=== PATIENT | female | born 2000 | race African-American/Black ===

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

== ENCOUNTER 2019-11-24 11:00 | Outpatient (CLI) | payer OTHER ==
[2019-11-25 12:12] LABS: SARS-CoV-2 MS2 Positive; SARS-CoV-2 N Gene Negative; SARS-CoV-2 S Gene Negative; SARS-CoV-2 orf1ab Negative
== END 2019-11-24 11:01 | disposition home or self-care (01) ==
LOC: LABBT 11:00
PROVIDERS: ATTEND Obstetrics & Gynecology
DX: Z01.812 Encounter for preprocedural laboratory examination (principal); Z11.59 Encounter for screening for other viral diseases
CPT/HCPCS: 87635; U0003

== ENCOUNTER 2019-11-27 10:39 | Observation (INO) | payer OTHER ==
[2019-11-27 11:24] VITALS: BMI 28.3
[2019-11-27] MEDS ORDERED: Iron Sucrose Complex 500 MG in Sodium Chloride 0.9% 250 ML 250 ML IVPB SCH (12:30)
[2019-11-27] MEDS ORDERED: Acetaminophen 500 MG TAB PO SCH (12:30)
--- NOTE | 2019-11-27 14:42 | PDOC.FPROB ---
FMR OB H&P: HPI - History of Present Illness Chief Complaint: CTX Indentification: History of Present Illness: Patient is a 19 y/o female at 33W EGA by LMP, c/w 1T US, who presents to L&D for an Iron Transfusion. Incidentally during her intake, the patient noted that she had been having severe ABD pain for ~5D, and noted that the pain was diffuse and would often cause her to halt her conversation or interrupt her activities at work or home. Following placement of monitors , the patient was found to be chato Q2-3M, with noticeable discomfort with each contraction. Patient continued to endorse good movement, and denied any loss of fluid, vaginal bleeding, unusual vaginal discharge, fevers, chills, cough, sore throat, recent trauma, recent travel or known sick contacts. 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 - Family History Family History: Strong FHx of HTN, DM2, CAD FMR OB H&P: Medications - Current Home Medications: Medication Instructions Recorded Confirmed Type Albuterol Sulfate [Proair HFA] 1 puff INH Q4HR PRN 03/08/15 02/13/18 History Iron 18 mg PO DAILY 10/14/17 02/13/18 History Pnv No.95/Ferrous Fum/Folic AC 1 each PO DAILY 10/14/17 02/13/18 History [ Formula] Allergies/Adverse Reactions: Allergies Allergy/AdvReac Type Severity Reaction Status Date / Time No Known Allergies Allergy Verified 08/21/19 13:27 FMR OB H&P: ROS - Review of Systems General: reports: weight/appetite/sleep changes, fatigue. denies: fever/chills , recent trauma Eyes: denies: vision changes, scotomas, floaters ENT: denies: rhinorrhea, frequent nose bleed Cardiovascular: reports: edema. denies: chest pain Respiratory: reports: shortness of breath, exercise intolerance. denies: cough , congestion Gastrointestinal: denies: abdominal pain, nausea, vomiting, diarrhea, constipation Genitourinary (Female): reports: vaginal discharge, contractions. denies: dysuria, hematuria, vaginal pain, vaginal bleeding, vaginal pressure Musculoskeletal: reports: swelling Neurologic: denies: syncope, loss of counsciousness Integumentary: denies: rash, lesions Psychological: reports: anxiety FMR OB H&P: Vital Signs - Maternal Vital signs: HR(92) BP(117/67) O2Sat(99%-Room Air) - Heart Tones Baseline: 140 Variability: moderate Acceleration: present Deceleration: absent Category: category 1 FMR OB H&P: Physical Exam - Physical Exam General: NAD, awake, alert and oriented HEENT: normocephalic and atraumatic, PERRLA, EOMI, MMM, conjunctiva clear, no scleral icterus, grossly normal vision, grossly normal hearing, normal nasal mucosa, oropharynx clear Neck: supple, FROM Chest: non-tender to palpation Breast: symmetric Heart: RRR, normal S1/S2, no murmurs/rubs/gallops, pulses present, no edema General: CTAB, no respiratory distress, good air movement, no rales/rhonchi, no wheezing, no retractions Abdomen: soft, gravid, non-tender Musculoskeletal: pulses present, FROM in all four extremities, no misalignment/ asymmetry, no atrophy Neurological: no focal deficit Skin: no rash, no jaundice Psychiatric: intact recent and remote memory, normal mood and affect - Pelvic Exam SVE: 1.5//-2 Membranes: Intact FMR OB H&P: A/P - Problem List (1) Anxiety Current Visit: Yes Status: Chronic Code(s): F41.9 - ANXIETY DISORDER, UNSPECIFIED (2) Asthma Current Visit: Yes Status: Chronic Code(s): J45.909 - UNSPECIFIED ASTHMA, UNCOMPLICATED (3) contractions Current Visit: Yes Status: Acute Code(s): O47.9 - FALSE LABOR, UNSPECIFIED (4) Anemia Current Visit: No Status: Acute Code(s): D64.9 - ANEMIA, UNSPECIFIED Disposition: Patient is a 19 y/o at 33W EGA by LMP, c/w 1T US, who presented to L&D for an Iron Transfusion but was incidentally found to have Pre-Term CTX. 1. Pre-Term CTX -CTX were initially Q2-3M on admission -No noted loss of fluids or loss of movement -s/p 1.5L NS and Iron Transfusion -Maternal VSS -FHTs in the 140s, CTX Q5-7M during last evaluation -Will encourage increased PO intake and provide with meals PRN -Will plan to repeat SVE @ 1630 and evaluate frequency of CTX -Plan for additional bolus if CTX > 1-2 per 10M interval 2. SIUP -See #1 3. Anemia -s/p Iron Transfusion -Will encourage appropriate outpatient follow-up to repeat CBC 4. Asthma -Patient denies respiratory symptoms at this time - has not had to use her inhaler recently 5. Anxiety -Not currently on medications due to insurance provider -Patient does not currently endorse uncontrolled anxiety, depression, SI or HI PCP: VALDEZ Cervantes Code: Full Diet: Regular Activity: Ad jena VTE PPx: None IVF: NS @ 100 ml/hr Dispo: Will repeat SVE @ 1630 and assess for cervical change - will continue to provide IVF and encourage PO intake as per above. Expected LOS < 24H. Discussion: Date/Time: 11/27/19 1432 This H&P was discussed with [] and [] who agree with the above documentation and plan. Addendum - Attending - Attending Attestation Date/Time: 11/27/19 1720 I personally evaluated the patient and discussed the management with Dr. Mcwilliams I agree with the History, Examination, Assessment and Plan documented above with any addition or exceptions noted below. Clarification to HPI. Patient has experienced uterine contractions since Friday, not continuous or intermittent abdominal pain. On my exam the uterus is soft and nontender between contractions. While her contractions improved for a while with hydration and iron infusion, she ultimately experienced an allergic reaction to the infusion. Benadryl given with improvement of arm swelling and leg swelling and rash. Contractions have increased. They are painful. Cervical effacement change noted on repeat exam. Will admit for labor at 33 weeks EGA. Check out given to Dr Elizondo.
[2019-11-27] MEDS ORDERED: hydrALAZINE 20 MG/ML VIAL SLOW IVP PRN (15:10)
[2019-11-27] MEDS ORDERED: diphenhydrAMINE 50 MG/ML VIAL ONE (15:49)
[2019-11-27] MEDS ORDERED: Ondansetron PF 4 MG/2 ML Vial IVP PRN (16:42)
[2019-11-27] MEDS ORDERED: Promethazine HCl 25 MG/ML VIAL IM PRN (16:42)
[2019-11-27] MEDS ORDERED: Butorphanol Tartrate 1 MG/ML VIAL SLOW IVP PRN (16:56)
[2019-11-27] MEDS ORDERED: Penicillin G Potassium 5 MILL.UNITS in Sodium Chloride 0.9% 100 ML IVPB SCH (17:00)
[2019-11-27] MEDS ORDERED: NIFEdipine 10 MG CAP PO SCH (17:00)
[2019-11-27] MEDS: Betamet Acet/Betamet Na Ph 30 MG/5 ML VIAL IM SCH (17:45)
[2019-11-27 18:28] LABS: Hemoglobin 10.1 g/dL (12.0-16.0); Mean Corpuscular HGB CONC 32.6 g/dL (32.0-36.0); Mean Corpuscular Volume 82.9 fL (78.0-98.0); Mean Platelet Volume 8.1 fL (7.4-10.4); Platelet Count 286 thou/uL (130-400); RBC Distribution Width 13.5 % (11.5-14.5); Red Blood Cell (RBC) Count 3.74 mill/uL (4.00-5.20); White Blood Cell (WBC) Count 10.7 thou/uL (4.8-10.8)
[2019-11-27 18:50] LABS: ALT (SGPT) Less than 7 U/L (8-55); AST (SGOT) 9 U/L (5-34); Albumin 2.9 g/dL (3.5-5.0); Alkaline Phosphatase 70 U/L (40-100); Anion Gap 12 mmol/L (10-20); BUN (Urea Nitrogen) 6 mg/dL (7.0-18.7); Bilirubin, Total 0.5 mg/dL (0.2-1.2); Calc. Creatinine Clearance 171 mL/min (70-130); Calcium 7.8 mg/dL (7.8-10.44); Carbon Dioxide 22 mmol/L (22-29); Chloride 110 mmol/L (98-107); Estimated GFR-MDRD Greater than 90; Globulin 2.6 g/dL (2.4-3.5); Glucose 86 mg/dL (70-105); Potassium 3.6 mmol/L (3.5-5.1); Protein, Total 5.5 g/dL (6.0-8.3); Sodium 140 mmol/L (136-145)
[2019-11-27 19:10] LABS: Syphilis Antibody Nonreactive (Nonreactive); Syphilis Antibody Index 0.06 S/CO (<1.00 Non-Reactive)
[2019-11-27 19:11] LABS: HBSAg Index 0.14 S/CO (0-0.99); HIV (1/2) Antibody/Antigen Non-Reactive (NonReactive); HIV 1/2 INDEX 0.16 S/CO (<1.00); Hep B Surf Ag Non-Reactive S/CO (NonReactive)
[2019-11-27 19:57] LABS: Bacteria/HPF None Seen HPF (None Seen); Bilirubin Negative (Negative); Blood, Urine Negative (Negative); Clarity Clear (Clear); Glucose, Urine (Dipstick) Normal (Negative); Leukocyte Negative Leu/uL (Negative); Nitrite Negative (Negative); Protein, Urine (Dipstick) Negative (Neg-Trace); RBC/HPF 0-3 HPF (0-3); Squamous Epithelial 0-3 HPF (0-3); Urobilinogen Normal mg/dL (Less than 2); WBC/HPF 0-3 HPF (0-3)
--- NOTE | 2019-11-27 20:05 | PDOC.LDPN ---
Labor & Delivery Progress Note - Subjective Subjective: comfortable - Objective Vital signs reviewed and normal: yes General: NAD Uterine fundus: non tender SVE: not repeated FHT: category 1 Dozier contractions every: Irregular Other exam findings: membrane intact - Assessment (1) contractions Code(s): O47.9 - FALSE LABOR, UNSPECIFIED Current Visit: Yes Status: Acute (2) Anemia Code(s): D64.9 - ANEMIA, UNSPECIFIED Current Visit: No Status: Acute Qualifiers: Anemia type: iron deficiency Iron deficiency anemia type: inadequate dietary iron intake Qualified Code(s): D50.8 - Other iron deficiency anemias -: Pt is experiencing now once in the last hour. She does have some swelling after the administration of iron sucrose. Cx are on the monitor. FHT's are WNL. She has received Benadryl 25 mg x 1 and if symptoms persist she can receive another dose. GBS pending. Received betamethasone, nifedipine. Continue current treatment so pt can receive second dose of betamethasone. Will work up pt for infection as source of labor - GCCH, VP3. Pending BPP, Biometry , and cervical length. Recheck in 6 hours from 2129. Abel Dowling DO Addendum - Attending - Attending Attestation Date/Time: 11/27/192033 I personally evaluated the patient and discussed the management with Dr. Dowling I agree with the History, Examination, Assessment and Plan documented above with any addition or exceptions noted below. 19 yo female at 33.0 wks presented for iron infusion now with concern for PTL. Patient denies contractions. Dozier reviewed. Cxt noted irregularly. FHT cat 1. VS reviewed. - contractions: Thought to be in PTL. BMZ for FLM started. CCB started for PTL. S/P SVE. Unable to obtain fFN. Will obtain CL, biometry, and BPP. No evidence of abruption. No significant findings of infections. Vaginal swabs and urine sent. GBS swab pending but currently receiving PCN. Continue to monitor throughout the night. Concerned initially related to dehydration that resolved with IVFs. Now feel ctx related to recent inflammatory /allergic reaction. - iron def anemia: Unable to treat with oral iron. Received majority of iron infusion prior to reaction. Trend count in outpatient setting. - iron succrose reaction: Continue to monitor. Has received benadryl and now receiving BMZ for FLM. Kelsey
[2019-11-27] MEDS: NIFEdipine 10 MG CAP PO SCH (20:46)
[2019-11-27] MEDS: Lactated Ringer's 1,000 ML IV SCH (20:46)
[2019-11-27] MEDS: Pen G 2.5 MILL.UNITS/50 ML BAG IVPB SCH (20:46)
--- NOTE | 2019-11-27 21:42 | ULT ---
Complete obstetrical ultrasound INDICATION: Contractions at 33 weeks gestation; biometry and cervical length TECHNIQUE: Grayscale, M-mode Doppler and Doppler images were obtained of the abdomen and pelvis to ev aluate the patient's known . COMPARISON: None. FINDINGS: Number of gestations: Single. Presentation: Cephalic. Placental location: Posterior Previa: No evidence for previa. Cervical length: 3.4 cm ELI: 20.5 cm. heart rate: 165 bpm. Biparietal diameter: 8.37cm, 33 weeks and 5 days, 65th percentile. Head circumference: 30.89 cm, 34 weeks and 3 days, 52nd percentile Abdominal circumference: 29.42 cm, 33 weeks and 3 days, 63rd percentile Femoral length: 6.11cm, 31 weeks and 5 days, 11th percentile Estimated weight: 2110 g g +/- 312g 4 lbs. 10 oz. +/- 11 ounces, 42nd percentile. SURVEY: head: Not well seen. Cerebellum: Not well seen. Cisterna magna: Not well seen Lateral ventricles: Not well seen 4 chamber heart: Normal appearing.. Stomach: Normal appearing. Kidneys: Normal appearing. Cord insertion: Normal appearing. Bladder: Normal appearing. Spine: Normal appearing. Lips and nose: Not well seen Extremities: Not well seen Three-vessel CORD: Normal appearing. The average gestational age by ultrasound is 33 weeks and 2 dayswith estimated due date of January 13, 2020. The estimated dates by clinical data is 33 weeks and 0 dayswith estimated due date of January 15, 2020 . IMPRESSION: 1. Single live intrauterine gestation with size and dates as above. 2. Limitations to the survey due to advanced gestational age.
--- NOTE | 2019-11-27 21:43 | ULT ---
LIMITED OBSTETRICAL ULTRASOUND FOR BIOPHYSICAL PROFILE INDICATION: Contractions at 33 weeks gestation TECHNIQUE: Grayscale, M-mode Doppler, color Doppler and spectral Doppler images were obtained. Biophy sical profile was submitted by the surgery technician. Imaging is focused on the clinical indication. COMPARISON: No relevant prior studies available. GESTATION: Number of gestations: Single. Presentation: Cephalic. heart rate: 165 bpm. Placental location: Posterior Previa: No evidence for previa. Cervical length: 3.4 cm ELI: 20.5 cm. Biophysical profile: tone: 2 out of 2. breathin out of 2 movements: 2 out of 2 Amniotic fluid level: 2 out of 2 IMPRESSION: 1. Biophysical profile of 8 out of 8.
[2019-11-28] MEDS: NIFEdipine 10 MG CAP PO SCH ×4 (00:39→13:27)
[2019-11-28] MEDS: Pen G 2.5 MILL.UNITS/50 ML BAG IVPB SCH ×4 (00:39→13:28)
--- NOTE | 2019-11-28 05:43 | PDOC.LDPN ---
Labor & Delivery Progress Note - Subjective Subjective: comfortable - Objective General: NAD, resting -: Subjective: at 33 wks who presented with contractions. She slept through the night w/o discomfort. This morning she felt one episode of pressure/ abdominal tightness. On the monitor it did appear she had a contraction. She denies LOF, vaginal bleeding, discharge. We did start antifungal yesterday for likely fungal infection although VP3 negative. Objective: FHT's low moderate variability. ELI 20.4 cm. Cervical Length 3.4 cm. A/P: Continue to watch pt until the next dose of betamethasone. If she does not appear to have overt signs of labor can discharge to home after second betamethasone dose. She will need a cervical check before discharge. Abel Dowling, DO
[2019-11-28] MEDS: Lactated Ringer's 1,000 ML IV SCH ×2 (06:30→16:14)
[2019-11-28 07:14] VITALS: BP 114/62
--- NOTE | 2019-11-28 09:47 | PDOC.LDPN ---
Labor & Delivery Progress Note -: 19 yo at 33.1 wks who presented with contractions. She slept through the night w/o discomfort. No recent contractions She denies LOF, vaginal bleeding, discharge. We did start antifungal yesterday for likely fungal infection although VP3 negative. US: ELI 20.4 cm. Cervical Length 3.4 cm. It does not appear patient is in labor. A/P: Continue to watch pt until the next dose of betamethasone @ 1745. If she does not appear to have overt signs of labor can discharge to home after second betamethasone dose. She will need a cervical check before discharge. Rx sent to complete course of clotrimazole. Addendum - Attending - Attending Attestation Date/Time: 11/28/19 9605 I personally evaluated the patient and discussed the management with Dr. Guzman. I agree with the History, Examination, Assessment and Plan documented above with any addition or exceptions noted below. Of note she had a panic attack after our rounds when she heard her son was possibly exposed to Covid. Our team comforted her and prayed with her. Contractions noted thereafter. Will continue to monitor.
[2019-11-28 15:26] VITALS: TEMP 98.2
[2019-11-28] MEDS: Betamet Acet/Betamet Na Ph 30 MG/5 ML VIAL IM SCH (18:12)
[2019-11-28] MEDS ORDERED: Clotrimazole 2% 3 Day Vag Cr 22.2 GM TUBE VAG SCH (21:00)
[2019-11-29 21:26] LABS: Chlamydia by PCR Not Detected (NotDetected); GC by PCR Not Detected (NotDetected)
== END 2019-11-28 18:20 | disposition home health service (06) ==
LOC: L&D/OP 10:39 → L&D 17:40 → INTOOBSV 17:40
PROVIDERS: ADMIT Family Medicine; ATTEND Family Medicine
DX: O47.03 False labor before 37 completed weeks of gestation, third trimester (principal); O99.013 Anemia complicating pregnancy, third trimester; D50.8 Other iron deficiency anemias; O99.513 Diseases of the respiratory system complicating pregnancy, third trimester; J45.909 Unspecified asthma, uncomplicated; O99.343 Other mental disorders complicating pregnancy, third trimester; F41.1 Generalized anxiety disorder; O9A.213 Injury, poisoning and certain other consequences of external causes complicating pregnancy, third trimester; M79.89 Other specified soft tissue disorders; T45.4X5A Adverse effect of iron and its compounds, initial encounter; Z3A.33 33 weeks gestation of pregnancy; Z79.899 Other long term (current) drug therapy
CPT/HCPCS: 36415; 76805; 76819; 80053; 81001; 85027; 86780; 86850; 86900; 86901; 87081; 87340; 87389; 87480; 87491; 87510; 87591; 87660; 96361; 96374; 96375; 96376; 99285; G0378; J0595; J0702; J1200; J1756; J2540; J3490; J7050

== ENCOUNTER 2019-11-29 16:34 | Observation (INO) | payer OTHER ==
[2019-11-29 17:19] VITALS: BMI 28.3
[2019-11-29] MEDS ORDERED: hydrALAZINE 20 MG/ML VIAL SLOW IVP PRN (18:51)
[2019-11-29] MEDS ORDERED: Lactated Ringer's 1,000 ML IV SCH ×2 (19:00→21:15)
[2019-11-29 19:25] LABS: Amnisure Test No Membranes Rupture (No Rupture)
[2019-11-29 19:26] LABS: Amnisure Internal Control QC ACCEPTABLE (ACCEPTABLE)
--- NOTE | 2019-11-29 19:44 | PDOC.FPROB ---
FMR OB H&P: HPI - History of Present Illness Chief Complaint: contractions History of Present Illness: Pt is a 19 yo at 33-2/7 wga by LMP confirmed by a 10-1/7 week u/s who presents with chief complaint of contractions. She states they increased in intensity around noon today and are about 3-5 minutes apart. Patient came to the hospital on 11/27/2019 for an iron transfusion and was suspected to be in pre term labor. Her cervical length was 34 mm with irregular contractions. Patient received Procardia and 2 doses of betamethasone before being sent home. She denies any complications this , but her first was complicated by pre-eclampsia with severe features and post hemorrhage. Patient endorses good movement, although she thinks it is less than before. Positive leaking of fluids earlier today, but no gush of fluid, and she denies vaginal bleeding. She denies any headache, chest pain, edema, RUQ pain, changes in vision. She does endorse mild intermittent SOB that started around 27 weeks. 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: menarche at 10 regular periods, every month currently sexually active with men LMP 04/10/2019 Hx of STDs: Chlamydia in August 2018 with negative test in May 2019 - Surgical History Sx History: benign breast tumor excision in 2014 - Family History Family History: father, bone d/o maternal aunt, DM and breast ca maternal grandmother, HTN, DM mother, HTN, hx of Pre Eclampsia, DM FMR OB H&P: Medications - Current Home Medications: Medication Instructions Recorded Confirmed Type Albuterol Sulfate [Proair HFA] 1 puff INH Q4HR PRN 03/08/15 11/29/19 History Iron 18 mg PO DAILY 10/14/17 11/29/19 History Pnv No.95/Ferrous Fum/Folic AC 1 each PO DAILY 10/14/17 11/29/19 History [ Formula Tablet] Clotrimazole 2% 3 Day Vag Cr 5 gm VAG HS 2 Days #1 tube 11/28/19 11/29/19 Rx [Clotrimazole 2% 3 Day Vaginal Cream] Allergies/Adverse Reactions: Allergies Allergy/AdvReac Type Severity Reaction Status Date / Time No Known Allergies Allergy Verified 11/29/19 17:17 FMR OB H&P: ROS - Review of Systems General: denies: fever/chills, weight/appetite/sleep changes, fatigue, recent trauma, other Cardiovascular: denies: chest pain, palpitation, edema Respiratory: reports: shortness of breath (mild intermittent SOB since 27 weeks , but denies increase in severity). denies: cough, exercise intolerance, other Gastrointestinal: denies: abdominal pain, indigestion, cramping, nausea, vomiting Genitourinary (Female): reports: vaginal discharge (clear, odorless discharge), contractions (contractions increased in intensity around noon. Every 3-4 minutes ). denies: dysuria, vaginal bleeding Musculoskeletal: denies: swelling Neurologic: denies: headache Integumentary: denies: itching, rash, lesions Psychological: denies: depression, anxiety FMR OB H&P: Vital Signs - Maternal Vital signs: WNL - Heart Tones Baseline: 140 Variability: moderate Acceleration: absent Deceleration: absent Category: category 1 Frederica contractions every: 3-4 minutes FMR OB H&P: Physical Exam - Physical Exam General: NAD, awake, alert and oriented HEENT: normocephalic and atraumatic, PERRLA, EOMI, conjunctiva clear, no scleral icterus Neck: supple, trachea midline Chest: non-tender to palpation Heart: RRR, normal S1/S2, no murmurs/rubs/gallops, pulses present, no edema General: CTAB, no respiratory distress, good air movement, no rales/rhonchi, no wheezing Abdomen: soft, gravid, non-tender Musculoskeletal: pulses present Neurological: cranial nerves II through XII intact, no focal deficit Skin: no rash Lymphatic: no unusual bruising or bleeding Psychiatric: intact recent and remote memory, good judgement and insight, normal mood and affect - Pelvic Exam Cervix: no masses, no lesions, no blood Membranes: intact FMR OB H&P: Results - Labs Lab results: Laboratory Results - last 24 hr 11/29/19 19:06 Amnio Swab Test No Membranes Rupture FMR OB H&P: A/P - Problem List (1) Current Visit: Yes Status: Acute Qualifiers: Weeks of gestation: 33 weeks Qualified Code(s): Z3A.33 - 33 weeks gestation of Assessment and Plan: - at 33 2/7 wga by LMP confirmed by first trimester ultrasound -history of pre-eclampsia in previous -adequate care, follows with Dr. Billy CHRISTIANSON -iron transfusion on 11/26 and presumed to be in PTL. Given procardia and 2x betamethasone from 11/26-11/27 -continue to monitor for signs of labor (2) contractions Current Visit: No Status: Acute Code(s): O47.9 - FALSE LABOR, UNSPECIFIED Assessment and Plan: -Pt is 33 2/7wga, ctx every 3-4 minutes -1L bolus of LR given, contractions have decreased. Will continue with MIVF, 125mL/hr LR -Amnisure negative for rupture of membranes -transvaginal ultrasound for evaluation of cervical length, 2.7cm today compared to 3.4cm on 11/28/2019 -Procardia 10mg TID -continue to monitor for signs of pre term labor (3) Anxiety Current Visit: No Status: Chronic Code(s): F41.9 - ANXIETY DISORDER, UNSPECIFIED Assessment and Plan: -patient not currently on any medications -denies any symptoms -continue to monitor (4) Asthma Current Visit: No Status: Chronic Code(s): J45.909 - UNSPECIFIED ASTHMA, UNCOMPLICATED Assessment and Plan: -patient endorses mild intermittent SOB since 27wga -no acute respiratory symptoms or wheezing -uses ProAir PRN at home -continue to monitor Discussion: Date/Time: 11/29/191937 This H&P was discussed with Dr. Morrison and Dr. Steele who agree with the above documentation and plan. Addendum - Attending - Attending Attestation Date/Time: 11/29/19 896 I personally evaluated the patient and discussed the management with Dr. Polanco I agree with the History, Examination, Assessment and Plan documented above with any addition or exceptions noted below. patient has received 2 doses of steroids during hospitalization from 11/26 to for concern for PTL. She was discharged home yesterday after her contractions stopped. transabdominal US showed cervical length of 3.4cm. FFN was not collected at that time. Patient states she has drank 8oz of water since discharge and noticed her contractions returned. FHT reassuring but she was initially contraction every 3-5 minutes. Speculum exam was unremarkable for pooling and amnisure is negative. Repeat cervical length US show her cervix was now 2.7 cm. She self administered vaginal clotrimazole within the past 48 hrs so unable to check FFN today. Will admit for labor given change in cervical US. she has received a 1L LR bolus which slowed her contractions. Will start procardia for tocolysis. Monitor on L&D and continue IV fluids. Will notify neonatology if her contractions resume. Will reassess SVE in the morning.
[2019-11-29 20:23] LABS: Bacteria/HPF 1+ HPF (None Seen); Bilirubin Negative (Negative); Blood, Urine Negative (Negative); Clarity Clear (Clear); Glucose, Urine (Dipstick) Normal (Negative); Ketone, Urine Negative (Negative); Leukocyte Negative Leu/uL (Negative); Mucous/LPF 1+ LPF (<2+); Nitrite Negative (Negative); Protein, Urine (Dipstick) Negative (Neg-Trace); RBC/HPF 0-3 HPF (0-3); Specific Gravity, Urine 1.016 (1.002-1.036); Squamous Epithelial 0-3 HPF (0-3); Urobilinogen Normal mg/dL (Less than 2); WBC/HPF 0-3 HPF (0-3); pH, Urine 6.5 (5.0-9.0)
[2019-11-29 20:25] LABS: Urine Culture Reflex Yes Yes
--- NOTE | 2019-11-29 20:33 | ULT ---
PELVIC ULTRASOUND: History: Evaluate cervical length Comparison: 11-26-2016 FINDINGS: Presentation: Cephalic Cervical length: 2.7 to 2.95 cm. Trace amount of fluid is suspected. heart tones: 135 beats/minute Posterior placenta. IMPRESSION: Cervical length between 2.7 and 2.95 cm. A small amount of fluid in the cervix is noted. POS: PPP
[2019-11-29] MEDS ORDERED: Promethazine HCl 25 MG/ML VIAL IM PRN (21:11)
[2019-11-29] MEDS ORDERED: Acetaminophen 500 MG TAB PO PRN (21:11)
[2019-11-29] MEDS ORDERED: Ondansetron PF 4 MG/2 ML Vial IVP PRN (21:11)
[2019-11-29] MEDS ORDERED: Docusate 100 MG CAP PO PRN (21:11)
[2019-11-29] MEDS ORDERED: NIFEdipine 10 MG CAP PO SCH (22:00)
[2019-11-30] MEDS ORDERED: Acetaminophen 500 MG TAB PO SCH (00:30)
[2019-11-30] MEDS ORDERED: hydrOXYzine 10 MG TAB PO SCH (01:00)
--- NOTE | 2019-11-30 07:14 | PDOC.OBAPN ---
R OB AP PN: Sub - Interval History Hospital Day: 1 Chief Complaint: Contractions Indentification: @ 33.3wk by LMP/9.3wk sono Interval History: No concerns, no CP, SOB, n/v, vision changes. Ctx spaced out, slept well FMR OB AP PN: Obj - Maternal Vital signs: T 99.4, 100% on RA, HR 97/103, BP 100s/50s with max 125/61 - Heart Tones Baseline: 130 Variability: moderate Acceleration: present Deceleration: absent Category: category 1 [place] contractions every: intermittent since 399 FMR OB AP PN: Exam - Physical Exam General: NAD, awake, alert and oriented HEENT: MMM, grossly normal vision, grossly normal hearing Neck: supple, trachea midline Heart: RRR, normal S1/S2, no murmurs/rubs/gallops, pulses present, other (mild, non-pitting LE edema to ankles) General: CTAB, no respiratory distress, good air movement, no rales/rhonchi, no wheezing Abdomen: soft, gravid, non-tender, bowel sound present, no masses Neurological: no focal deficit Psychiatric: intact recent and remote memory, good judgement and insight, normal mood and affect FMR OB AP PN: Data - Labs Lab results: Laboratory Results - last 24 hr 11/29/19 11/29/19 19:06 20:10 Urine Color Light-Yellow Urine Clarity Clear Urine pH 6.5 Ur Specific [place] 1.016 Urine Protein Negative Urine Glucose (UA) Normal Urine Ketones Negative Urine Blood Negative Urine Nitrite Negative Urine Bilirubin Negative Urine Urobilinogen Normal Ur Leukocyte Esterase Negative Urine RBC 0-3 Urine WBC 0-3 Ur Squamous Epith Cells 0-3 Urine Bacteria 1+ A Urine Mucus 1+ Urine Culture Reflexed Yes A Amnio Swab Test No Membranes Rupture FMR OB AP PN: A/P - Problem List (1) Current Visit: Yes Status: Acute Qualifiers: Weeks of gestation: 33 weeks Qualified Code(s): Z3A.33 - 33 weeks gestation of (2) contractions Current Visit: Yes Status: Acute Code(s): O47.9 - FALSE LABOR, UNSPECIFIED Disposition: 19yo @ 33.3wk by LMP/9.3wk sono presents for contractions # contractions, concern for labor - Seen 6/27 in L&D for iron transfusion, was chato every 3-5min with concern for labor - Cervical length at that time 3.4, given Procardia x1 and betamethasone x2 doses with spacing out on ctx and discharged with good return precautions - presented 11/28 PM with recurrence of contractions. SVE was 1-2/50/-2 at presentation. - Cervical length 2.7 -> 2.95cm on US, Amnisure negative, no pooling on exam. Reviewed images, Cervical T shaped, very scant fluid in cervix. Variation in cervical length could be due to transabdominal vs transvaginal different between the two exams - Started on Procardia 10mg TID for tocolysis and given IVF bolus and started on MIVF - Initial ctx q3-4min, spaced out since 0400 to intermittent. - Cat 1 strip with accels, no deccels. Baseline 130. Endorses good movement, no LOF or vaginal bleeding this AM - Will recheck cervix this AM to asses for any cervical change. Cont to monitor on FHT. Encourage hydration. - Unable to perform FFN due to recent clotrimazole intravaginal use #h/o PrE and hemorrhage - previous , on ASA - BPs WNL, no s/s of severe features - will monitor #Mild intermittent asthma - proair prn IVF: LR @ 125cc/hr Diet: Regular PCP: VALDEZ Cervantes Dispo: Cont to monitor FHT and contractions. Recheck cervix this AM to determine if in labor and appropriate management. Will obtain GBS due to concern for possible labor. Discussion: Date/Time: 11/30/19 5654 This H&P was discussed with and Dr. Adams who agree with the above documentation and plan. Addendum - Attending - Attending Attestation Date/Time: 11/30/19 5403 I personally evaluated the patient and discussed the management with Dr. Wesley. I agree with the History, Examination, Assessment and Plan documented above with any addition or exceptions noted below. No change on digital exam. Upon review of images no funneling and discrepancy between TAS and TVUS may account for shortening. Regardless, she is no longer chato. D/c without procardia. Return precautions discussed in detail.
[2019-11-30] MEDS ORDERED: NIFEdipine 10 MG CAP PO SCH (09:00)
[2019-11-30 09:05] VITALS: BP 116/59; TEMP 97.6
--- NOTE | 2019-12-02 15:09 | DIS ---
DATE OF ADMISSION: 11/29/2019 DATE OF DISCHARGE: 11/30/2019 RESIDENT: Sergio Wesley MD ADMITTING ATTENDING PHYSICIAN: Mike Steele MD DISCHARGE ATTENDING: Dr. Fuentes Adams. CONSULTS: None. PROCEDURES: Transvaginal ultrasound on 11/29/19, demonstrating cephalic presentation with a cervical length of 2.7 to 2.95 cm with trace amount of fluid. heart tones are 135 beats per minute and a posterior placenta. PRIMARY DIAGNOSIS: contractions, concern for labor. SECONDARY DIAGNOSIS: 1. History of preeclampsia in previous . 2. History of hemorrhage requiring transfusion with previous delivery. 3. Mild intermittent asthma. 4. Anxiety. DISCHARGE MEDICATIONS: 1. ProAir one puff inhalation q.4 hours p.r.n. 2. Iron 18 mg p.o. daily. 3. vitamin 1 tablet p.o. daily. 4. Clotrimazole 2% 3 Day vaginal cream, to use one additional day to complete course. DISCONTINUED MEDICATIONS: None. HISTORY OF PRESENT ILLNESS AND HOSPITAL COURSE: The patient is a 19-year-old G2, P1-0-0-1 at 33.3 weeks by LMP consistent with a 9.3 week sono who presented for contractions. Of note, the patient presented on November 26 for a scheduled iron infusion, at that time was having contractions every 3 to 4 minutes and was thus worked up for labor. She was observed overnight and received 2 doses of betamethasone. GBS swab was obtained which returned negative. She was given IV hydration and one dose of Procardia with cessation of contractions and thus was discharged home with strict return precautions. A cervical ultrasound was also performed at that time, which showed a cervical length of 3.4 cm. However, this was done transabdominally. Since discharge, the patient states that she has not been drinking very much water at all but had continued to use her clotrimazole cream for a suspected yeast infection. She presented to Labor and Delivery triage for return of contractions spacing every 3 to 4 minutes and increased in intensity that did not subside over a few hours of observation. She endorsed good movement. No vaginal bleeding and no change in vaginal discharge. At initial presentation, a speculum exam was performed that did not show any pooling or loss of fluid or Valsalva. AmniSure was obtained that was negative. A repeat cervical ultrasound transvaginally was obtained with a cervical length of 2.7 to 2.9 cm. The patient was given IV fluid bolus and maintenance IV fluid and encouraged with p.o. hydration and was started on Procardia 10 mg t.i.d. Early in the morning hours on the first day of hospitalization, her contractions spaced out and she was no longer feeling numb the morning of discharge. At initial presentation over the weekend, her cervix was 1 to 2 cm, 50% effaced, and negative 2 station. A cervical exam was performed on the morning of discharge that was essentially unchanged at 1, 50, -2. Unfortunately, a fibronectin was unable to be obtained due to patient using clotrimazole for a yeast infection. Variance in the cervical length could be due to transabdominal versus transvaginal approach. The patient was monitored on monitoring over the morning and had a category 1 strip with very intermittent contractions, accelerations without decelerations. She endorsed good movement, no loss of fluid, and no return of contractions. Due to the patient already receiving adequate steroids and having a GBS swab obtained, it was determined the patient would be safe for discharge home with strict return precautions. Signs and symptoms of delivery were discussed with the patient as well as appropriate followup within the next week for her routine 34 week visit as well as hospital followup. Of note, patient will also need a repeat GBS swab should she progress to greater than 38 weeks prior to delivery due to the GBS swab obtained at 33 weeks. The patient was strongly encouraged to maintain adequate oral hydration. Ultrasound images were reviewed, which showed a T shaped cervix that appeared closed with very scant fluid. Due to all of the findings above, the patient was then discharged home with very strict return labor precautions. The patient and mother at bedside voiced agreement and understanding of discharge plan with all questions answered. The patient was then discharged home. DISPOSITION: Stable. DISCHARGE INSTRUCTIONS: 1. Location: Home. 2. Diet: As tolerated. 3. Activity: As tolerated. 4. Followup: The patient should follow up within 1 week for her routine 34 week visit as well as hospital followup or sooner if needed. Job ID: [id number]
== END 2019-11-30 11:15 | disposition home health service (06) ==
LOC: L&D/OP 16:34 → L&D 22:05 → INTOOBSV 22:05 → L&D 11-30 20:23
PROVIDERS: ADMIT Family Medicine; ATTEND Family Medicine
DX: O47.03 False labor before 37 completed weeks of gestation, third trimester (principal); O99.513 Diseases of the respiratory system complicating pregnancy, third trimester; J45.20 Mild intermittent asthma, uncomplicated; O99.343 Other mental disorders complicating pregnancy, third trimester; F41.9 Anxiety disorder, unspecified; Z3A.33 33 weeks gestation of pregnancy; Z79.899 Other long term (current) drug therapy
CPT/HCPCS: 76856; 84112; 87086; 99285

== ENCOUNTER 2019-12-18 16:54 | Day surgery (SDC) | payer OTHER ==
[2019-12-18 17:22] VITALS: BMI 29.3
[2019-12-18 17:35] VITALS: BP 121/71; TEMP 98
--- NOTE | 2019-12-18 19:09 | PDOC.FPROB ---
FMR OB H&P: HPI - History of Present Illness Chief Complaint: contractions Indentification: 19yo @ 36wks by LMP/9.3wk History of Present Illness: 19yo @ 36wks by LMP/9.3wk presents for ctx. Patient was at work today and has had intermittent ctx for past few weeks. At approx 1130, had onset of painful ctx, every 3-5min. Drank plenty of water but ctx did not subside. Presented to L&D and ctx initially subsided but have now returned to eery 4-6 min. No LOF, vaginal discharge or bleeding. Endorses good movement. No CP , has chronic SOB during most of third trimester with no changes, occasional MENENDEZ that improves with tylenol. No vision changes, RUQ or epigastric pain, dysuria, or n/v. Of note, she was admitted on 11/26-11/27 for concern for labor, at that time was given steroids x2, tocolytic, IV hydration, and a CL was 2.7cm. She was discharged home with labor precautions. She had a GBS swab performed earlier in but is due for repeat now that she is 36wks GA. Primary Care Physician: VALDEZ Cervantes FMR OB H&P: Current - Care : 2 Para: 1001 Gestational age: 36 Due date: 01/15/20 Dating Criteria: LMP/9.3wk sono Course/Complications: Anemia of - OB Labs Blood type: O RH: positive Antibody Screen: negative HIV: negative RPR: negative HepBsAg: negative Urine drug screen: negative Gonorrhea: negative Chlamydia: negative 1 hour gtt: 108 A1c: 5.3 GBS: negative H&H: 8.7/27.4 on 12/10/19 Platelets: 234 FMR OB H&P: History - Past Medical History PMH: anxiety, mild intermittent asthma, migraine - OB History OB History: h/o PreE in prior , current on ASA history of hemorrhage - 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 H/o Chlamydia in August 2018 with negative this - Surgical History Sx History: Benign breast tumor excision in 2014 - Social History Social History: No Tob, illicits, EtOH. - Family History Family History: father with bone disorder maternal aunt DM and breast ca maternal grandmother with HTN and DM mother with HTN, DM, h/o PreE FMR OB H&P: Medications - Current Home Medications: Medication Instructions Recorded Confirmed Type Albuterol Sulfate [Proair HFA] 1 puff INH Q4HR PRN 03/08/15 12/18/19 History Iron 18 mg PO DAILY 10/14/17 12/18/19 History Pnv No.95/Ferrous Fum/Folic AC 1 each PO DAILY 10/14/17 12/18/19 History [ Formula Tablet] Allergies/Adverse Reactions: Allergies Allergy/AdvReac Type Severity Reaction Status Date / Time No Known Allergies Allergy Verified 11/29/19 17:17 FMR OB H&P: ROS - Review of Systems General: denies: fever/chills, weight/appetite/sleep changes Eyes: denies: vision changes, double vision, scotomas, floaters ENT: denies: nasal congestion, rhinorrhea, sore throat Cardiovascular: denies: chest pain, palpitation, edema Respiratory: reports: shortness of breath (chronic, no changes). denies: cough , congestion Gastrointestinal: denies: abdominal pain, cramping, nausea, vomiting, diarrhea, constipation Genitourinary (Female): reports: contractions. denies: dysuria, hematuria, polyuria, vaginal discharge, vaginal bleeding Musculoskeletal: denies: pain, stiffness Neurologic: denies: numbness, syncope, weakness Integumentary: denies: rash Psychological: reports: anxiety. denies: depression FMR OB H&P: Vital Signs - Maternal Vital signs: Vital Signs - First Documented Temp Pulse Resp BP 98.0 F 94 18 121/71 12/18/19 17:21 12/18/19 17:21 12/18/19 17:21 12/18/19 17:21 - Heart Tones Baseline: 140 Variability: moderate Acceleration: present Deceleration: absent Category: category 1 [place] contractions every: 4-6min FMR OB H&P: Physical Exam - Physical Exam General: NAD, awake, alert and oriented HEENT: PERRLA, EOMI, MMM Neck: supple, trachea midline Heart: RRR, normal S1/S2, no murmurs/rubs/gallops, no edema General: CTAB, no respiratory distress, good air movement, no rales/rhonchi, no wheezing Abdomen: soft, gravid, non-tender, bowel sound present Musculoskeletal: normal gait and station, FROM in all four extremities Neurological: no focal deficit Skin: no rash Psychiatric: intact recent and remote memory, good judgement and insight, normal mood and affect - Pelvic Exam SVE: 1.5/50/-2 Membranes: intact FMR OB H&P: A/P - Problem List (1) Current Visit: Yes Status: Acute Qualifiers: Weeks of gestation: 36 weeks Qualified Code(s): Z3A.36 - 36 weeks gestation of (2) contractions Current Visit: Yes Status: Acute Code(s): O47.9 - FALSE LABOR, UNSPECIFIED Disposition: 19yo @ 36wks by LMP/9.3wk presents for ctx. # contractions, r/o labor - presents for ctx for past 5-6 hours, q2-3min initially and now q4-6 on monitor - FHT cat 1 - No LOF, vaginal bleeding or discharge, good FM - s/p Steroids for lung protection on 11/26-11/27 during overnight obs for concern for labor - SVE 1.550/-2, unchanged from hospitalization on 11/26 - will obtain GBS swab today - encourage PO hydration, monitor ctx, and recheck in approx 2 hours #Anemia of - s/p iron transfusion 11/26 - Hb 8.7 on 12/10/19, down from 10 post transfusion - will need monitoring during labor and #h/o PrE and hemorrhage - previous , on ASA - BPs WNL, no s/s of severe features #Mild intermittent asthma - uses proair prn - avoid hemabate IVF: SL Diet: Regular PCP: VALDEZ Cervantes Dispo: During observation on L&D, patient with continued contractions q4-6min, Cat 1 strip. Planned for IVF bolus, however patient refused and stated would continue PO hydration. SVE recheck after 3 hours was essentially unchanged at 50/-2. No evidence of labor at this time. Encouraged PO hydration. Strict labor precautions given. Discharge plan discussed with patient and mother at bedside who voiced understanding and agreement, all questions answered. Discussion: Date/Time: 12/18/191908 This H&P was discussed with Dr. Steele who agrees with the above documentation and plan. Addendum - Attending - Attending Attestation Date/Time: 12/18/192023 I personally evaluated the patient and discussed the management with Dr. Wesley. I agree with the History, Examination, Assessment and Plan documented above with any addition or exceptions noted below.
[2019-12-18] MEDS ORDERED: hydrALAZINE 20 MG/ML VIAL SLOW IVP PRN (19:14)
[2019-12-18] MEDS ORDERED: Lactated Ringer's 1,000 ML IV SCH (20:15)
[2019-12-18] MEDS ORDERED: diphenhydrAMINE 50 MG/ML VIAL IVP SCH (20:15)
== END 2019-12-18 21:55 | disposition home or self-care (01) ==
LOC: L&D/OP 16:54
PROVIDERS: ATTEND Family Medicine
DX: O47.03 False labor before 37 completed weeks of gestation, third trimester (principal); O99.513 Diseases of the respiratory system complicating pregnancy, third trimester; J45.20 Mild intermittent asthma, uncomplicated; Z3A.36 36 weeks gestation of pregnancy; Z79.899 Other long term (current) drug therapy
CPT/HCPCS: 87081

== ENCOUNTER 2019-12-31 18:27 | Day surgery (SDC) | payer BC, OTHER ==
[2019-12-31 19:13] VITALS: BP 125/78; TEMP 98.6; BMI 30.2
--- NOTE | 2019-12-31 20:02 | PDOC.FPRHP ---
- History of Present Illness Chief Complaint: HTN History of Present Illness: Patient is a 19yo @ 37.6 wks presenting for HTN. She reports that she has been monitoring her BP for the past 24 hrs more closely and has been getting pressures of 130s/70s at the highest. She also reports that she has had increased BLT LE swelling over the past day. The swelling is up to her knees and feels tight. She is feeling contractions 4-5 times an hour and has good FM. She endorses vaginal discharge that has been going on for multiple weeks. The discharge is clear and slightly malodorous. She has no concern for yeast or bacterial infection, it is different than her typical presentation for either of those. She denies a big gush of fluids. Denies VB. - Allergies/Adverse Reactions Allergies Allergy/AdvReac Type Severity Reaction Status Date / Time iron [From Venofer] Allergy Hives Verified 12/31/19 19:03 - Home Medications Medication Instructions Recorded Confirmed Type Albuterol Sulfate [Proair HFA] 1 puff INH Q4HR PRN 03/08/15 12/31/19 History Iron 18 mg PO DAILY 10/14/17 12/31/19 History Pnv No.95/Ferrous Fum/Folic AC 1 each PO DAILY 10/14/17 12/31/19 History [ Formula Tablet] Aspirin [Adult Low Dose Aspirin EC] 81 mg PO DAILY 12/31/19 12/31/19 History - History PMHx: PSHx: FHx: Social: - Vital signs BP: [] HR: [] RR: [] Tmax: [] Pox: []% on [] Wt: [] FMR H&P: Upper Level - Plan Date/Time: 12/31/191958 I, [], have evaluated this patient and agree with findings/plan as outlined by bakery pastry internship resident. Pertinent changes/additions are listed here.
[2019-12-31 20:20] LABS: #Eosinphils 0.1 thou/uL (0.0-0.7); #Lymphocytes 1.4 thou/uL (1.20-3.40); #Monocytes 0.5 thou/uL (0.11-0.59); #Neutrophils 4.8 thou/uL (1.40-6.50); %Basophils 0.5 % (0.0-1.0); %Eosinophils 0.8 % (0.0-10.0); %Monocytes 6.7 % (0.0-4.0); %Neutrophils 71.1 % (31.0-61.0); Hemoglobin 9.6 g/dL (12.0-16.0); Mean Corpuscular HGB CONC 32.2 g/dL (32.0-36.0); Mean Corpuscular Hemoglobin 27.3 pg (25.0-35.0); Mean Corpuscular Volume 84.9 fL (78.0-98.0); Mean Platelet Volume 8.5 fL (7.4-10.4); Platelet Count 209 thou/uL (130-400); RBC Distribution Width 17.9 % (11.5-14.5); Red Blood Cell (RBC) Count 3.51 mill/uL (4.00-5.20); White Blood Cell (WBC) Count 6.8 thou/uL (4.8-10.8)
--- NOTE | 2019-12-31 20:20 | PDOC.FPROB ---
FMR OB H&P: HPI - History of Present Illness Chief Complaint: HTN, leg swelling History of Present Illness: Patient is a 19yo @ 37.6 wks presenting for HTN. She reports that she has been monitoring her BP for the past 24 hrs more closely and has been getting pressures of 130s/70s at the highest. She also reports that she has had increased BLT LE swelling over the past day. The swelling is up to her knees and feels tight. She is feeling contractions 4-5 times an hour and has good FM. She endorses vaginal discharge that has been going on for multiple weeks. The discharge is clear and slightly malodorous. She has no concern for yeast or bacterial infection, it is different than her typical presentation for either of those. She denies a big gush of fluids. Denies VB. Primary Care Physician: VALDEZ Caraballo FMR OB H&P: Current - Care : 2 Para: 1 Gestational age: 37.6 wks Due date: 01/10/20 Dating Criteria: 10.1 wk US Total weight gain: 20 lbs Course/Complications: Anemia, anxiety - OB Labs Blood type: O RH: positive Antibody Screen: negative HIV: negative RPR: negative HepBsAg: negative Rubella: immune Gonorrhea: negative Chlamydia: negative (05/23/19) 1 hour gtt: 108 A1c: 5.3 FMR OB H&P: History - Past Medical History PMH: asthma, anxiety - OB History OB History: 1 after mIOL for preE - Surgical History Sx History: none - Social History Social History: Lives at home with FOB - Family History Family History: No family hx of complications or defects FMR OB H&P: Medications - Current Home Medications: Medication Instructions Recorded Confirmed Type Albuterol Sulfate [Proair HFA] 1 puff INH Q4HR PRN 03/08/15 12/31/19 History Iron 18 mg PO DAILY 10/14/17 12/31/19 History Pnv No.95/Ferrous Fum/Folic AC 1 each PO DAILY 10/14/17 12/31/19 History [ Formula Tablet] Aspirin [Adult Low Dose Aspirin EC] 81 mg PO DAILY 12/31/19 12/31/19 History Allergies/Adverse Reactions: Allergies Allergy/AdvReac Type Severity Reaction Status Date / Time iron [From Venofer] Allergy Hives Verified 12/31/19 19:03 FMR OB H&P: ROS - Review of Systems General: denies: fever/chills, recent trauma Eyes: reports: vision changes, floaters. denies: eye pain ENT: denies: nasal congestion, rhinorrhea Cardiovascular: reports: edema. denies: chest pain, palpitation Respiratory: denies: cough, congestion, shortness of breath Gastrointestinal: denies: abdominal pain, nausea, vomiting Genitourinary (Female): reports: vaginal discharge, contractions. denies: incontinence, dysuria, vaginal bleeding Musculoskeletal: denies: pain, stiffness Neurologic: reports: headache. denies: numbness, syncope, seizures Integumentary: denies: itching, rash Breast: denies: lumps, bumps Hematologic/Lymphatic: denies: prolonged or excessive bleeding, enlarged lymph nodes Psychological: reports: anxiety. denies: depression FMR OB H&P: Vital Signs - Maternal Vital signs: Vital Signs - First Documented Temp Pulse Resp BP 98.6 F 105 H 18 125/78 12/31/19 18:58 12/31/19 18:58 12/31/19 18:58 12/31/19 18:58 - Heart Tones Baseline: 130 Variability: moderate Acceleration: present Deceleration: absent Category: category 1 [place] contractions every: 5 mins FMR OB H&P: Physical Exam - Physical Exam General: NAD, awake, alert and oriented HEENT: normocephalic and atraumatic, PERRLA, MMM, conjunctiva clear, grossly normal vision, grossly normal hearing Neck: supple, FROM Heart: RRR, normal S1/S2, no murmurs/rubs/gallops, pulses present Deviation from normal: no pitting edema General: CTAB, no respiratory distress, good air movement Abdomen: gravid, non-tender, bowel sound present Neurological: sensation to pain,touch and proprioception grossly normal, no focal deficit Skin: no rash, good tugor Lymphatic: no unusual bruising or bleeding, no purpura Psychiatric: intact recent and remote memory, good judgement and insight, normal mood and affect - Pelvic Exam SVE: 2/thick/-3 Estimated Weight: 7 lbs FMR OB H&P: A/P Disposition: home pending BP monitoring and lab results Discussion: Date/Time: 12/31/192016 Patient is a 19yo @ 37.6 wks presenting for HTN. PreE r/o - BP readings at home within normal range however sx sound similar to preE sx - monitor BP - continuous monitoring - CBC, CMP, Uric Acid, Urine protein, Urine creatinine - BPP Anxiety - monitor, PRN medications if concerned for sx while in triage Anemia of - on home Fe - monitor with CBC Asthma - monitor respiratory status This H&P was discussed with Dr. Adams who agree with the above documentation and plan. Addendum - Attending - Attending Attestation Date/Time: 01/01/20 0702 I personally evaluated the patient and discussed the management with Dr. Keen. I agree with the History, Examination, Assessment and Plan documented above with any addition or exceptions noted below. All normal pressures here. Reassuring status. Negative labs.
[2019-12-31 20:41] LABS: ALT (SGPT) Less than 7 U/L (8-55); AST (SGOT) 10 U/L (5-34); Albumin 3.6 g/dL (3.5-5.0); Alkaline Phosphatase 102 U/L (40-100); Anion Gap 12 mmol/L (10-20); BUN (Urea Nitrogen) 5 mg/dL (7.0-18.7); Bilirubin, Total 0.5 mg/dL (0.2-1.2); Calc. Creatinine Clearance 192 mL/min (70-130); Calcium 8.7 mg/dL (7.8-10.44); Carbon Dioxide 24 mmol/L (22-29); Chloride 103 mmol/L (98-107); Estimated GFR-MDRD Greater than 90; Globulin 2.9 g/dL (2.4-3.5); Glucose 68 mg/dL (70-105); Potassium 3.4 mmol/L (3.5-5.1); Protein, Total 6.5 g/dL (6.0-8.3); Sodium 136 mmol/L (136-145); Uric Acid 2.3 mg/dL (2.6-6.0)
[2019-12-31 21:20] LABS: Creatinine, Urine 65.47 mg/dL (47-110); Protein, Urine Random Quant Less than 10 mg/dL (1-14)
--- NOTE | 2019-12-31 21:52 | PDOC.BPN ---
<Pedro Keen - Last Filed: 12/31/19 22:48> - Brief Progress Note Patient is a 19yo @ 37.6 wks presenting for HTN. PreE r/o labs wnl, shows anemia BPP 8/8 monitoring showing episodes of minimal variability, likely sleep patterns , moderate variability on latest check PreE r/o - labs unremarkable for preE - BP readings at home within normal range however sx sound similar to preE sx - counselled patient to check BP 1-2X day and call/return for concerning BP Anxiety, anemia, asthma stable during triage Dispo: Home given negative workup, counselled patient on returning for signs of active labor or for elevated BP/signs of PreE <Fuentes Adams - Last Filed: 01/01/20 07:03> Addendum - Attending - Attending Attestation Date/Time: 01/01/20 0703 I personally evaluated the patient and discussed the management with Dr. Keen. I agree with the History, Examination, Assessment and Plan documented above with any addition or exceptions noted below. Reassuring workup and status. Symptoms not consistent with preE in my opinion. Return precautions and dc home.
--- NOTE | 2019-12-31 22:49 | ULT ---
US Biophysical Profile: 12/31/2019 9:37 PM CLINICAL HISTORY: Minimal variability with monitoring. COMPARISON: None. FINDINGS: heart rate: 143 bpm. ELI: 13.1 cm Biophysical profile: 8 of 8 IMPRESSION: Normal biophysical profile
== END 2019-12-31 22:55 | disposition home or self-care (01) ==
LOC: EEVIPCON 18:27 → L&D/OP 18:27
PROVIDERS: ATTEND Psychologist Counseling
DX: O16.3 Unspecified maternal hypertension, third trimester (principal); O99.343 Other mental disorders complicating pregnancy, third trimester; F41.9 Anxiety disorder, unspecified; O99.013 Anemia complicating pregnancy, third trimester; D64.9 Anemia, unspecified; O99.513 Diseases of the respiratory system complicating pregnancy, third trimester; J45.909 Unspecified asthma, uncomplicated; O99.89 Other specified diseases and conditions complicating pregnancy, childbirth and the puerperium; M79.89 Other specified soft tissue disorders; N89.8 Other specified noninflammatory disorders of vagina; Z3A.37 37 weeks gestation of pregnancy; Z79.82 Long term (current) use of aspirin; Z79.899 Other long term (current) drug therapy; Z88.8 Allergy status to other drugs, medicaments and biological substances
CPT/HCPCS: 36415; 76819; 80053; 82570; 84156; 84550; 85025

== ENCOUNTER → 2020-01-07 | Outpatient (CLI) | payer BC, OTHER ==
[2020-01-07 17:35] LABS: SARS-CoV-2 MS2 Positive; SARS-CoV-2 N Gene Negative; SARS-CoV-2 S Gene Negative; SARS-CoV-2 by NAA Not Detected (NotDetected); SARS-CoV-2 orf1ab Negative
== END ==
LOC: LABBT 08:00
PROVIDERS: ATTEND Family Medicine
DX: Z20.828 Contact with and (suspected) exposure to other viral communicable diseases (principal)
CPT/HCPCS: 87635; U0003

== ENCOUNTER 2021-12-21 07:48 | Outpatient (CLI) | payer OTHER | END 2021-12-21 07:49 | disposition home or self-care (01) | LOC: BICULT 07:48 | PROVIDERS: ATTEND Physician Assistant Medical | DX: R10.13 Epigastric pain (principal); K59.09 Other constipation | CPT/HCPCS: 76700 ==

== ENCOUNTER 2022-01-17 09:27 | Outpatient (CLI) | payer OTHER | END 2022-01-17 09:28 | disposition home or self-care (01) | LOC: BICRAD 09:27 | PROVIDERS: ATTEND Physician Assistant Medical | DX: K59.09 Other constipation (principal); R10.13 Epigastric pain | CPT/HCPCS: 74019 ==

== ENCOUNTER 2022-04-17 11:51 | Outpatient (CLI) | payer OTHER | END 2022-04-17 11:52 | disposition home or self-care (01) | LOC: BICRAD 11:51 | PROVIDERS: ATTEND Physician Assistant Medical | DX: K59.09 Other constipation (principal); B96.81 Helicobacter pylori [H. pylori] as the cause of diseases classified elsewhere; R19.5 Other fecal abnormalities | CPT/HCPCS: 74018 ==

== ENCOUNTER 2022-04-24 14:39 | Outpatient (CLI) | payer OTHER | END 2022-04-24 14:40 | disposition home or self-care (01) | LOC: BICRAD 14:39 | PROVIDERS: ATTEND Physician Assistant Medical | DX: K59.09 Other constipation (principal); A04.8 Other specified bacterial intestinal infections | CPT/HCPCS: 74018 ==

== ENCOUNTER 2023-03-19 16:35 | Emergency (ER) | payer OTHER, SELFPAY ==
[~2023-03-19 16:35] MED LIST: Iopamidol-370 76% 500 ML MDV (1 ML CHARGE) ONE
[2023-03-19] MEDS ORDERED: Dicyclomine 20 MG TAB ONE (17:29)
[2023-03-19] MEDS ORDERED: Ondansetron ODT 4 MG TAB ONE (17:30)
[2023-03-19 17:34] LABS: #Eosinphils 0.2 thou/uL (0.0-0.7); #Monocytes 0.5 thou/uL (0.11-0.59); %Basophils 0.7 % (0.0-1.0); %Eosinophils 3.6 % (0.0-10.0); %Lymphocytes 32.7 % (21.0-51.0); %Monocytes 8.6 % (0.0-10.0); %Neutrophils 54.2 % (42.0-75.0); Hematocrit 39.1 % (36.0-47.0); Hemoglobin 12.5 g/dL (12.0-16.0); Mean Corpuscular Hemoglobin 28.5 pg (27.0-31.0); Mean Corpuscular Volume 89.1 fl (78.0-98.0); Mean Platelet Volume 9.6 fL (7.4-10.4); Platelet Count 323 10x3/uL (130-400); RBC Distribution Width 13.6 % (11.5-14.5); Red Blood Cell (RBC) Count 4.39 mill/uL (4.20-5.40); White Blood Cell (WBC) Count 5.6 10x3/uL (4.8-10.8)
[2023-03-19 18:00] LABS: ALT (SGPT) 25 U/L (8-55); AST (SGOT) 16 U/L (5-34); Albumin 4.8 g/dL (3.5-5.0); Alkaline Phosphatase 90 U/L (40-110); Anion Gap 14 mmol/L (10-20); BUN (Urea Nitrogen) 12 mg/dL (7.0-18.7); Bilirubin, Total 0.4 mg/dL (0.2-1.2); Calc. Creatinine Clearance 0 mL/min (70-130); Calcium 9.9 mg/dL (7.8-10.44); Carbon Dioxide 24 mmol/L (22-29); Chloride 105 mmol/L (98-107); Estimated GFR 122; Globulin 2.9 g/dL (2.4-3.5); Glucose 81 mg/dL (70-105); Lipase 16 U/L (8-78); Potassium 4.1 mmol/L (3.5-5.1); Protein, Total 7.7 g/dL (6.0-8.3); Sodium 139 mmol/L (136-145)
[2023-03-19] MEDS ORDERED: methylPREDNISolone Sod Succ 40 MG VIAL ONE (20:57)
[2023-03-19] MEDS ORDERED: Famotidine/PF 20 mg/2ml Vial ONE (20:57)
[2023-03-19] MEDS ORDERED: diphenhydrAMINE 50 MG/ML VIAL ONE (20:57)
[2023-03-19 21:00] LABS: Bacteria/HPF 3+ HPF (None Seen); Bilirubin Negative (Negative); Blood, Urine Negative (Negative); CAUTI Indications for Culture Pelvic or flank pain; Clarity Clear (Clear); Glucose, Urine (Dipstick) Normal (Negative); Ketone, Urine Negative (Negative); Leukocyte 25 Leu/uL (Negative); Mucous/LPF Rare LPF (<2+); Nitrite Negative (Negative); Protein, Urine (Dipstick) Negative (Neg-Trace); Specific Gravity, Urine 1.025 (1.002-1.036); Squamous Epithelial 0-3 HPF (0-3); Urobilinogen Normal mg/dL (Less than 2); pH, Urine 6.5 (5.0-9.0)
[2023-03-19 21:03] LABS: Pregnancy Test - Urine (BHCG) Negative (Negative); Pregu Control Background? CLEAR/WHITE (CLR/WHITE); Pregu Control Bar Appear? YES (CONTROL BAR); Specific Gravity 1.025 (1.002-1.036)
[2023-03-19 21:04] LABS: Urine Culture Reflex No No
[2023-03-19] MEDS ORDERED: Ketorolac Tromethamine 30 MG/ML VIAL ONE (23:30)
== END 2023-03-19 23:00 | disposition home or self-care (01) ==
LOC: ERS 16:35
DX: I88.0 Nonspecific mesenteric lymphadenitis (principal); N39.0 Urinary tract infection, site not specified
CPT/HCPCS: 36415; 74177; 76705; 80053; 81001; 81025; 83690; 85025; 96374; 96375; J1200; J1885; J2920; Q0162; Q9967; S0028

== ENCOUNTER 2024-04-03 15:26 | Emergency (ER) | payer MEDICAID, OTHER, SELFPAY | END 2024-04-03 16:11 | disposition home or self-care (01) | LOC: ERS 15:26 | DX: H66.91 Otitis media, unspecified, right ear (principal); B34.9 Viral infection, unspecified; R10.13 Epigastric pain | CPT/HCPCS: 99282 ==